=== PATIENT | male | born 1960 | race African-American/Black ===

== ENCOUNTER 2023-01-29 20:20 | Emergency (ER) | payer SELFPAY ==
[2023-01-29] MEDS ORDERED: Ketorolac Tromethamine 30 MG/ML VIAL ONE (21:01)
== END 2023-01-29 21:06 | disposition home or self-care (01) ==
LOC: ERS 20:20
DX: M25.562 Pain in left knee (principal); M25.561 Pain in right knee
CPT/HCPCS: 96372; 99283; J1885

== ENCOUNTER 2023-08-25 23:52 | Emergency (ER) | payer SELFPAY | END 2023-08-26 00:35 | disposition home or self-care (01) | LOC: ERS 23:52 | DX: M25.512 Pain in left shoulder (principal); F17.210 Nicotine dependence, cigarettes, uncomplicated ==